=== PATIENT | male | born 1965 | race Caucasian/White ===

== ENCOUNTER 2018-05-10 13:21 | Emergency (ER) | payer BC ==
[2018-05-10] MEDS ORDERED: AMOX TR/POT CLAV 875MG/125MG TABLETS (FP) PO ONE (13:30)
--- NOTE | 2018-05-10 13:35 | PDOC ---
History of Present Illness - General Chief Complaint: Injury Stated Complaint: CAT SCRATCH Time Seen by Provider: 05/10/18 13:30 History Source: Patient Exam Limitations: No Limitations - History of Present Illness Initial Comments: 05/10/18 13:31 HPI 52 YOM with h/o HLD presenting with right facial laceration and neck abrasions s /p cat scratches. This is home pet cat, fully vaccinated; no pain, discharge, redness. unclear last Tdap. Allergies: NKA Past Medical History: Social history: Lives with family. No smoking. No alcohol. No illicit drugs. Surgical history: noncontributory. ROS Constitutional: no fevers or chills. HEENT: no visual changes. no eye pain with movement. MUSCULOSKELETAL: No joint pain and swelling. No neck or back pain. SKIN: +abrasions, laceration/wound to face. Hematologic: no easy bruising/bleeding. NEUROLOGIC: No weakness, numbness or tingling. Allergic/Immunologic: no allergies All other systems reviewed and negative, or as documented in HPI. PE: General: Well appearing, awake and alert, NAD. HEENT: NCAT, PERRL, EOMI, clear conjunctiva, anicteric, +right lateral jawline/ lower face with 2cm linear superficial laceration, nonbleeding, no discharge. no FB visualized Neck: neck supple, FROM, +superficial abrasions to right lateral anterior neck. Resp: CTAB, normal and even respirations, no respiratory distress CVS: RRR, no murmurs, 2+ peripheral pulses throughout, no peripheral edema Abdomen: soft, NTND, no peritoneal signs. Neuro: alert, oriented appropriately; CN V grossly intact, normal facial sensation. CN VII intact. Skin: warm and well perfused, cap refill <2 sec, normal color; abrasions to right neck, +facial laceration noted to lower right face as above. 05/10/18 13:34 05/10/18 14:22 Past History - Past Medical History Allergies/Adverse Reactions: Allergies Allergy/AdvReac Type Severity Reaction Status Date / Time No Known Allergies Allergy Verified 05/10/18 13:51 Home Medications: Ambulatory Orders Amox-Tr/K Cl [Augmentin - 875Mg Tablet] 1 tab PO BID #20 tablet 05/10/18 Atorvastatin Ca [Lipitor] 20 mg PO HS 05/10/18 Procedures - Laceration/Wound Repair Right Lower Face Wound Length: to 2.5 cm Wound Explored: contaminated Wound's Depth, Shape: superficial Irrigated w/ Saline: Yes Anesthesia: 1% Lidocaine Amount of Anesthetic (ccs): 2 Wound Debrided: minimal Wound Repaired With: Steri-strips Progress: 05/10/18 14:21 left primarily open due to animal scratch wound, heal by secondary intention. copious irrigation with 500cc sterile water under high pressure and deep wound cleansing. Medical Decision Making - Medical Decision Making 05/10/18 13:34 hpi as documented VS wnl. well appearing cat scratch injury, copious cleaning performed with sterile water with high pressure x 500cc. topical bacitraicn. left open due to infection risk, so healing by secondary intention steri strip to prevent openness augmentin x 10 day course tdap updated . wound care instructions as provided return if worsening s/s infection and no effect from abx after 24-48 hours. 05/10/18 14:16 *DC/Admit/Observation/Transfer Diagnosis at time of Disposition: Cat scratch of face Qualifiers: Encounter type: initial encounter Qualified Code(s): S00.81XA - Abrasion of other part of head, initial encounter; W55.03XA - Scratched by cat, initial encounter - Discharge Dispostion Disposition: HOME Condition at time of disposition: Improved Decision to Admit order: No - Prescriptions Prescriptions: Amox-Tr/K Cl [Augmentin - 875Mg Tablet] 1 tab PO BID #20 tablet - Referrals - Patient Instructions Printed Discharge Instructions: DI for Cat Scratch Disease/Fever, DI for Open Laceration Additional Instructions: wound/laceration assessed from cat scratch, w/o complications, bleeding controlled. area cleaned and dried, dressings placed with topical bacitracin. monitor for signs of infection including fevers or chills, redness, streaking, swelling, purulence, malodor. You may wash with soap and water 2-3X per day, topical antibiotics such as neosporin. follow up in 2-3 days for suture removal with your doctor for clinical recheck. motrin/tylenol for pain control. tetanus is also up to date today, given here. No sutures indicated as there is a risk of infection from the cat scratch. Antibiotics: Trial of Augmentin x 10 days, if not improving or worsening sx > 24-48 hours, return sooner for reeval/wound check/IV antibiotics. keep area clean and covered, may clean with soap and water. motrin/tylenol as needed for pain control. take medications with food. - Post Discharge Activity
[2018-05-10 13:43] VITALS: BP 132/91; PULSE 52; TEMP 98.7; BMI 19.5
[2018-05-10] MEDS ORDERED: LIDOCAINE HCL 1%, 10 MG/ML (50 mL VIAL) INF ONE (14:02)
[2018-05-10] MEDS ORDERED: LIDOCAINE HCL 1%, 10 MG/ML (20ML VIAL) ONE (14:04)
[2018-05-10] MEDS ORDERED: DIPHTH,PERTUSS(ACELL),TET 0.5 ML DISP.SYRIN IM ONE (14:15)
== END 2018-05-10 14:38 | disposition home or self-care (01) ==
LOC: FER 13:21
PROC: 0HQ1XZZ Repair Face Skin, External Approach (ICD-10-PCS; principal; 2018-05-10)
PROC: 3E0234Z Introduction of Serum, Toxoid and Vaccine into Muscle, Percutaneous Approach (ICD-10-PCS; 2018-05-10)
DX: S01.81XA Laceration without foreign body of other part of head, initial encounter (principal); W55.03XA Scratched by cat, initial encounter; Y93.89 Activity, other specified; Y92.89 Other specified places as the place of occurrence of the external cause
CPT/HCPCS: 90715; 99282-25